=== PATIENT | male | born 1945 | race Two or more races ===

== ENCOUNTER 2024-09-05 10:24 | Inpatient (IN) | payer OTHER ==
[~2024-09-05] VITALS: Ht 177.8 cm; Wt 93.4 kg
[2024-09-05] MEDS ORDERED: LIPITOR20 MG (11:13)
[2024-09-05] MEDS ORDERED: CILOSTAZOL100 MG PO (11:14)
[2024-09-05] MEDS ORDERED: METFORMIN HCL500 M3 PO (11:14)
[2024-09-05] MEDS ORDERED: MONTELUKAST SODI4 M1 (11:14)
[2024-09-05] MEDS ORDERED: ZESTRIL5 MG PO (11:14)
[2024-09-05] MEDS ORDERED: FOSAMAX70 MG PO (11:15)
[2024-09-05] MEDS ORDERED: ADULT LOW DOSE81 M1 PO (11:15)
[2024-09-05 11:19] VITALS: BP 122/76
[2024-09-19] MEDS ORDERED: METRONIDAZOLE/SODIUM CHLORIDE 500 MG/100 ML PIGGYBACK IV ONE (14:26)
[2024-09-19] MEDS ORDERED: CEFTRIAXONE SODIUM 2,000 MG VIAL ONE (14:26)
[2024-09-19] MEDS ORDERED: BUPIVACAINE HCL/MPF 0.5% 30ML VIAL ONE (17:19)
[2024-09-19] MEDS ORDERED: LIDOCAINE HCL 1%/EPINEPHRINE 20ML VIAL IJ ONE (17:20)
[2024-09-19] MEDS ORDERED: ONDANSETRON HCL 2 MG/ML VIAL IV PRN (17:30)
[2024-09-19] MEDS ORDERED: 0.9 % SODIUM CHLORIDE 1,000 ML IV SCH (17:30)
[2024-09-19] MEDS ORDERED: OxyCODONE HCL 5 MG TABLET (ROXICODONE) PO PRN (17:30)
[2024-09-19] MEDS ORDERED: MORPHINE SULFATE 4 MG/ML CARTRIDGE IV PRN (17:30)
[2024-09-19] MEDS ORDERED: DEXTROSE 50 % IN WATER 0.5 G/ML VIAL IV PRN (17:30)
[2024-09-19] MEDS ORDERED: ACETAMINOPHEN 500 MG GEL..CAP PO SCH (20:00)
[2024-09-19] MEDS ORDERED: FAMOTIDINE/PF 20 MG/2 ML VIAL IV PUSH SCH (21:00)
[2024-09-19] MEDS ORDERED: CELECOXIB 200 MG CAPSULE PO SCH (21:00)
[2024-09-19] MEDS ORDERED: MORPHINE SULFATE 4 MG/ML VIAL IV ONE ×3 (22:05→23:05)
[2024-09-19] MEDS ORDERED: FAMOTIDINE/PF 20 MG/2 ML VIAL ONE (22:32)
[2024-09-19 23:06] LABS: HEMATOCRIT 39.8 % (39.0-48.0); HEMOGLOBIN 13.5 g/dL (13-16.00); MEAN CELL VOLUME 87.8 fL (80.0-100.00); MEAN CORPUSCULAR HEMOGLOBIN 29.8 pg (27.00-32.0); PLATELET COUNT 180 K/uL (150-450); RED BLOOD COUNT 4.53 M/uL (4.00-6.00); RED CELL DISTRIBUTION WIDTH 13.6 % (11.5-14.5)
[2024-09-19 23:28] LABS: ALBUMIN 3.3 gm/dL (3.4-5.0); CALCIUM 8.5 mg/dL (8.5-10.1); CREATININE SERUM 1.07 mg/dL (0.70-1.30); GFR 66.84; MAGNESIUM 1.7 mg/dL (1.8-2.4); PHOSPHOROUS 3.5 mg/dL (2.5-4.9); POTASSIUM 3.83 mEq/L (3.5-5.1)
[2024-09-20] MEDS ORDERED: GABAPENTIN 300 MG CAPSULE PO ONE (00:13)
[2024-09-20] MEDS ORDERED: ACETAMINOPHEN 500 MG GEL..CAP PO ONE (00:13)
[2024-09-20] MEDS ORDERED: MORPHINE SULFATE 4 MG/ML VIAL IV ONE (00:40)
[2024-09-20] MEDS ORDERED: METRONIDAZOLE/SODIUM CHLORIDE 500 MG/100 ML PIGGYBACK IV SCH (01:00)
[2024-09-20] MEDS ORDERED: GABAPENTIN 300 MG CAPSULE PO SCH (01:00)
[2024-09-20 02:15] VITALS: BP 161/84; O2SAT 97
[2024-09-20 06:50] LABS: HEMATOCRIT 40.8 % (39.0-48.0); HEMOGLOBIN 14.3 g/dL (13-16.00); MEAN CELL VOLUME 87.7 fL (80.0-100.00); MEAN CORPUSCULAR HEMOGLOBIN 30.7 pg (27.00-32.0); PLATELET COUNT 176 K/uL (150-450); RED BLOOD COUNT 4.65 M/uL (4.00-6.00); RED CELL DISTRIBUTION WIDTH 13.4 % (11.5-14.5)
[2024-09-20 07:15] LABS: ALBUMIN 3.4 gm/dL (3.4-5.0); CALCIUM 8.6 mg/dL (8.5-10.1); CREATININE SERUM 0.94 mg/dL (0.70-1.30); GFR 77.61; MAGNESIUM 1.9 mg/dL (1.8-2.4); PHOSPHOROUS 3.6 mg/dL (2.5-4.9); POTASSIUM 3.72 mEq/L (3.5-5.1)
[2024-09-20 08:31] VITALS: BP 139/88; O2SAT 97
[2024-09-20] MEDS ORDERED: HYOSCYAMINE SULFATE 0.125 MG TAB.SUBL SL SCH (09:00)
[2024-09-20 16:36] VITALS: BP 136/81; O2SAT 98
[2024-09-20] MEDS ORDERED: ENOXAPARIN SODIUM 40 MG/0.4 ML SYRINGE SUBCUTANEO SCH (17:00)
[2024-09-20] MEDS ORDERED: POLYETHYLENE GLYCOL 3350 17 GM BLIST.PACK PO SCH (17:00)
[2024-09-21 00:16] VITALS: BP 98/59; O2SAT 93
[2024-09-21 08:00] VITALS: BP 99/61; O2SAT 95
[2024-09-21] MEDS ORDERED: ENOXAPARIN SODIUM 40 MG/0.4 ML SYRINGE SUBCUTANEO SCH (09:00)
[2024-09-21] MEDS ORDERED: ENALAPRILAT DIHYDRATE 1.25 MG/ML VIAL IV PRN (12:00)
[2024-09-21 17:51] VITALS: BP 126/80; O2SAT 98
[2024-09-22 00:34] VITALS: BP 153/84; O2SAT 96
[2024-09-22 06:12] LABS: HEMATOCRIT 40.4 % (39.0-48.0); MEAN CELL VOLUME 86.9 fL (80.0-100.00); MEAN CORPUSCULAR HEMOGLOBIN 30.1 pg (27.00-32.0); MEAN CORPUSCULAR HGB CONC 34.6 g/dl (32.0-36.0); PLATELET COUNT 190 K/uL (150-450); RED BLOOD COUNT 4.65 M/uL (4.00-6.00); RED CELL DISTRIBUTION WIDTH 13.7 % (11.5-14.5)
[2024-09-22 06:42] LABS: ALBUMIN 3.1 gm/dL (3.4-5.0); CALCIUM 9.4 mg/dL (8.5-10.1); GFR 72.27; MAGNESIUM 1.9 mg/dL (1.8-2.4); PHOSPHOROUS 2.8 mg/dL (2.5-4.9); POTASSIUM 4.19 mEq/L (3.5-5.1)
[2024-09-22] MEDS ORDERED: LISINOPRIL 5 MG TABLET PO SCH (09:00)
[2024-09-22 09:44] VITALS: BP 119/80; O2SAT 95
[2024-09-22] MEDS ORDERED: PIPERACILLIN/TAZOBACTAM SODIUM 3.375 GM in 0.9 % SODIUM CHLORIDE 100 ML IV SCH (12:00)
[2024-09-22 16:00] VITALS: BP 124/70; O2SAT 98
[2024-09-22] MEDS ORDERED: AA 5 % NO.6/DEXTROSE 15 % 2,000 ML CENTRAL SCH (17:00)
[2024-09-23] VITALS: BP 100/71; O2SAT 96
[2024-09-23 06:59] LABS: HEMATOCRIT 34.2 % (39.0-48.0); MEAN CORPUSCULAR HEMOGLOBIN 30.5 pg (27.00-32.0); PLATELET COUNT 190 K/uL (150-450); RED BLOOD COUNT 3.94 M/uL (4.00-6.00); RED CELL DISTRIBUTION WIDTH 13.6 % (11.5-14.5)
[2024-09-23 07:34] LABS: ALBUMIN 2.5 gm/dL (3.4-5.0); CALCIUM 8.4 mg/dL (8.5-10.1); CREATININE SERUM 0.91 mg/dL (0.70-1.30); GFR 80.57; PHOSPHOROUS 2.9 mg/dL (2.5-4.9); POTASSIUM 3.3 mEq/L (3.5-5.1)
[2024-09-23 08:00] VITALS: BP 134/79; O2SAT 97
[2024-09-23] MEDS ORDERED: POTASSIUM CHLORIDE IN WATER 100 ML IV NR (11:00)
[2024-09-23] MEDS ORDERED: DEXTROSE 50 % IN WATER 0.5 G/ML VIAL IV PRN (13:45)
[2024-09-23] MEDS ORDERED: INSULIN LISPRO 1,000 UNIT/10 ML UNITS SUBCUTANEO PRN (13:45)
[2024-09-23 17:14] VITALS: BP 116/76; O2SAT 97
[2024-09-24 01:39] VITALS: BP 123/74; O2SAT 98
[2024-09-24 08:00] VITALS: BP 126/75; O2SAT 95
[2024-09-24 16:00] VITALS: BP 131/76; O2SAT 99
[2024-09-25 07:44] LABS: HEMATOCRIT 31.4 % (39.0-48.0); HEMOGLOBIN 10.9 g/dL (13-16.00); MEAN CELL VOLUME 86.9 fL (80.0-100.00); MEAN CORPUSCULAR HEMOGLOBIN 30.3 pg (27.00-32.0); MEAN CORPUSCULAR HGB CONC 34.9 g/dl (32.0-36.0); PLATELET COUNT 136 K/uL (150-450); RED BLOOD COUNT 3.61 M/uL (4.00-6.00); RED CELL DISTRIBUTION WIDTH 13.6 % (11.5-14.5)
[2024-09-25 08:00] VITALS: BP 132/79; O2SAT 99
[2024-09-25 08:05] LABS: CALCIUM 8.1 mg/dL (8.5-10.1); CREATININE SERUM 0.75 mg/dL (0.70-1.30); GFR 100.72; MAGNESIUM 1.9 mg/dL (1.8-2.4); PHOSPHOROUS 3.1 mg/dL (2.5-4.9); POTASSIUM 3.61 mEq/L (3.5-5.1)
[2024-09-25 16:30] VITALS: BP 132/86; O2SAT 97
[2024-09-25 23:30] VITALS: BP 131/77; O2SAT 98
[2024-09-26 07:16] LABS: HEMATOCRIT 31.1 % (39.0-48.0); HEMOGLOBIN 10.6 g/dL (13-16.00); MEAN CELL VOLUME 87.6 fL (80.0-100.00); MEAN CORPUSCULAR HEMOGLOBIN 29.9 pg (27.00-32.0); MEAN CORPUSCULAR HGB CONC 34.1 g/dl (32.0-36.0); PLATELET COUNT 153 K/uL (150-450); RED BLOOD COUNT 3.54 M/uL (4.00-6.00); RED CELL DISTRIBUTION WIDTH 13.4 % (11.5-14.5)
[2024-09-26 07:57] LABS: ALBUMIN 2.4 gm/dL (3.4-5.0); BILIRUBIN TOTAL 0.54 mg/dL (0.3-1.2); BILIRUBIN,CONJUGATED 0.15 mg/dL (0.0-0.2); BILIRUBIN,UNCONJUGATED 0.39 mg/dL (0.0-0.6); CALCIUM 8.5 mg/dL (8.5-10.1); CREATININE SERUM 0.84 mg/dL (0.70-1.30); GFR 88.37; GLOBULINA 3.1 G/DL (2.4-3.5); MAGNESIUM 1.9 mg/dL (1.8-2.4); POTASSIUM 4.1 mEq/L (3.5-5.1); TOTAL PROTEIN 5.5 gm/dL (6.4-8.2)
[2024-09-26 08:53] VITALS: BP 133/83; O2SAT 100
[2024-09-26 10:40] LABS: UREA CLEARANCE 59.1 ML/MIN
[2024-09-26] MEDS ORDERED: PEPCID AC20 MG PO (11:26)
[2024-09-26] MEDS ORDERED: TRAM1TAB98 PO (11:26)
== END 2024-09-26 16:14 | disposition home or self-care (01) | DRG 330 ==
LOC: O/R 09-19 06:44 → SURG 09-19 06:44 → SURH 09-19 22:00 → SURG 09-19 22:03
PROVIDERS: Internal Medicine Geriatric Medicine; ADMIT Surgery; ATTEND Surgery
PROC: 0DQ80ZZ Repair Small Intestine, Open Approach (ICD-10-PCS; 2024-09-19)
PROC: 0WQF0ZZ Repair Abdominal Wall, Open Approach (ICD-10-PCS; 2024-09-19)
PROC: 07BB0ZZ Excision of Mesenteric Lymphatic, Open Approach (ICD-10-PCS; 2024-09-19)
PROC: 0DJD4ZZ Inspection of Lower Intestinal Tract, Percutaneous Endoscopic Approach (ICD-10-PCS; 2024-09-19)
PROC: 0DTG0ZZ Resection of Left Large Intestine, Open Approach (ICD-10-PCS; principal; 2024-09-19 16:30)
PROC: 02HV33Z Insertion of Infusion Device into Superior Vena Cava, Percutaneous Approach (ICD-10-PCS; 2024-09-22)
DX: C18.4 Malignant neoplasm of transverse colon (principal); C77.2 Secondary and unspecified malignant neoplasm of intra-abdominal lymph nodes; K91.89 Other postprocedural complications and disorders of digestive system; K56.7 Ileus, unspecified; R59.0 Localized enlarged lymph nodes; D37.4 Neoplasm of uncertain behavior of colon; K66.0 Peritoneal adhesions (postprocedural) (postinfection); E11.65 Type 2 diabetes mellitus with hyperglycemia; Z79.4 Long term (current) use of insulin; E78.5 Hyperlipidemia, unspecified; D64.9 Anemia, unspecified; Z53.31 Laparoscopic surgical procedure converted to open procedure